=== PATIENT | male | born 1955 | race Caucasian/White ===

== ENCOUNTER 2018-09-14 10:01 | Emergency (ER) | payer MEDICARE, OTHER ==
[2018-09-14] MEDS: predniSONE 20 MG TAB PO (10:42)
[2018-09-14] MEDS: ALBUTEROL 0.083% (NEB) 2.5 MG/3 ML AMP HHN (11:00)
== END 2018-09-14 11:55 | disposition home or self-care (01) ==
LOC: FTE 10:01
DX: J06.9 Acute upper respiratory infection, unspecified (principal); Z87.891 Personal history of nicotine dependence
CPT/HCPCS: 94664; 99283-25